=== PATIENT | male | born 1975 | race Caucasian/White ===

== ENCOUNTER 2024-08-08 16:21 | Emergency (ER) | payer BC ==
[~2024-08-08] VITALS: Ht 185.4 cm; Wt 93.0 kg
[~2024-08-08 16:21] MED LIST: CEPH500 PO; HYDACE5 PO; OXYACE5T PO
[2024-08-08 16:34] VITALS: BP 131/77
[2024-08-08] MEDS ORDERED: Diphth,Pertuss(Acell),Tet Vac 0.5 ML VIAL IM ONE (16:40)
[2024-08-08] MEDS ORDERED: Amoxicillin/Clavulanate K 875 MG Tab PO ONE (19:05)
[2024-08-08] MEDS ORDERED: AMOCLA875 PO (19:07)
== END 2024-08-08 19:20 | disposition home or self-care (01) ==
LOC: ER 16:21
DX: S51.812A Laceration without foreign body of left forearm, initial encounter (principal); W20.8XXA Other cause of strike by thrown, projected or falling object, initial encounter; Z91.013 Allergy to seafood
CPT/HCPCS: 12005; 73090; 90471; 90715; 99283-25